=== PATIENT | male | born 1990 | race Caucasian/White ===

== ENCOUNTER 2018-10-01 05:45 | Emergency (ER) | payer SELFPAY ==
[~2018-10-01] VITALS: Ht 185.4 cm; Wt 102.1 kg
[2018-10-01 05:45] VITALS: BP 127/61
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
--- NOTE | 2018-10-01 05:45 | NUR ---
PT BIB [facility], PREBOOK. TAKEN TO CHAIR E
--- NOTE | 2018-10-01 05:54 | NUR ---
Dr. Clemente examining patient.
--- NOTE | 2018-10-01 06:00 | NUR ---
Patient discharged with v/s stable. Written and verbal after care instructions given and explained. Patient alert, oriented and verbalized understanding of instructions. [facility] with in custody. All questions addressed prior to discharge. ID band removed. Patient advised to follow up with PMD. Opportunity to ask questions provided and answered.
[2018-10-01 06:03] VITALS: BP 127/61
== END 2018-10-01 06:00 ==
LOC: MED 05:45
DX: Z04.1 Encounter for examination and observation following transport accident (principal); R00.0 Tachycardia, unspecified; R03.0 Elevated blood-pressure reading, without diagnosis of hypertension
CPT/HCPCS: 99283